=== PATIENT | male | born 1995 | race Caucasian/White ===

== ENCOUNTER 2017-05-27 19:11 | Emergency (ER) | payer BC ==
[~2017-05-27] VITALS: Ht 177.8 cm; Wt 81.6 kg
[~2017-05-27 19:11] MED LIST: IBU800 MG PO; NKHM; NORCO 10-325 T1 EACH PO; VICODIN 5-3001 EACH PO
[2017-05-27] MEDS ORDERED: LIDEX 0.05% CRE15 GM T (19:38)
== END 2017-05-27 19:52 | disposition home or self-care (01) ==
LOC: ED 19:11
DX: L25.3 Unspecified contact dermatitis due to other chemical products (principal); T65.891A Toxic effect of other specified substances, accidental (unintentional), initial encounter; R03.0 Elevated blood-pressure reading, without diagnosis of hypertension; Z88.1 Allergy status to other antibiotic agents; Y92.9 Unspecified place or not applicable

== ENCOUNTER 2017-06-18 22:46 | Emergency (ER) | payer OTHER, BC ==
[~2017-06-18] VITALS: Ht 177.8 cm; Wt 83.9 kg
[~2017-06-18 22:46] MED LIST changes: +LIDEX 0.05% CRE15 GM T
[2017-06-19] MEDS ORDERED: Motrin,Rufen800 MG PO (00:46)
== END 2017-06-19 01:42 | disposition home or self-care (01) ==
LOC: ED 22:46
DX: S93.401A Sprain of unspecified ligament of right ankle, initial encounter (principal); Z88.1 Allergy status to other antibiotic agents; X50.1XXA Overexertion from prolonged static or awkward postures, initial encounter; Y93.89 Activity, other specified; Y92.89 Other specified places as the place of occurrence of the external cause; Y99.9 Unspecified external cause status

== ENCOUNTER 2019-02-14 16:39 | Emergency (ER) | payer BC ==
[~2019-02-14] VITALS: Ht 177.8 cm; Wt 83.9 kg
[~2019-02-14 16:39] MED LIST changes: +Motrin,Rufen800 MG PO
[2019-02-14] MEDS ORDERED: Motrin,Rufen800 MG PO (18:19)
== END 2019-02-14 18:29 | disposition home or self-care (01) ==
LOC: ED 16:39
DX: S40.212A Abrasion of left shoulder, initial encounter (principal); S80.212A Abrasion, left knee, initial encounter; S30.811A Abrasion of abdominal wall, initial encounter; S30.810A Abrasion of lower back and pelvis, initial encounter; R51 Headache; Z88.1 Allergy status to other antibiotic agents; Z79.899 Other long term (current) drug therapy; V29.9XXA Motorcycle rider (driver) (passenger) injured in unspecified traffic accident, initial encounter; X58.XXXA Exposure to other specified factors, initial encounter; Y93.I9 Activity, other involving external motion; Y92.488 Other paved roadways as the place of occurrence of the external cause; Y99.8 Other external cause status

== ENCOUNTER 2021-12-25 10:44 | Emergency (ER) | payer SELFPAY ==
[~2021-12-25] VITALS: Ht 177.8 cm; Wt 83.9 kg
[2021-12-25] MEDS ORDERED: KETOROLAC10 MG PO (14:42)
[2021-12-25] MEDS ORDERED: PREDNISONE20 M1 PO (14:42)
== END 2021-12-25 15:12 | disposition home or self-care (01) ==
LOC: ED 10:44
DX: M54.16 Radiculopathy, lumbar region (principal)